=== PATIENT | female | born 1955 | race Asian ===

== ENCOUNTER 2023-09-29 00:03 | Day surgery (SDC) | payer OTHER, SELFPAY ==
[2023-09-28 11:49] VITALS: BMI 36.6
--- NOTE | 2023-09-28 11:49 | PC.NURSE ---
PRE-OP INSTRUCTIONS, PLEASE READ CAREFULLY Report to the Outpatient Waiting Room, entrance under the green pavilion located off [facility], at time _0630_ on date _09/29/23_. Planned Procedure Time: _0830_. Time changes happen often and if your time is changed the preop area will call you the afternoon before. - You and your visitor will be asked to self-screen and do not enter if you have any COVID symptoms. - A mask is optional within the hospital at this time. Patients may have clear liquids (water, carbonated beverages, clear teas, apple juice) until 3 hours prior to surgery (0530 AM) with a maximum of 20 ounces. - No food from midnight until time of surgery Take the following medications with a SIP of water the morning of surgery: N/A DO NOT STOP ANY OF YOUR OTHER PRESCRIPTION MEDICATIONS PRIOR TO SURGERY ?EXCEPT THE FOLLOWING Medications to discontinue per physician N/A Date to take last dose Please no make-up, nail swiss, hairspray, perfume, deodorant, or body powder the day of surgery. No jewelry (including any body piercings) or valuables the day of surgery, leave them at home. Please take a shower or bath the night before, or the morning of, surgery with an antibacterial soap. Wear comfortable, loose fitting clothing. - Jewelry must be removed prior to entering the operating room. Rings and piercings that are not removed may be cut off. - The hospital will not accept responsibility for valuables. - Please leave all valuables, including medications, at home the day of surgery. If you are going home after surgery, a licensed cdl team truck driver must drive you home. - NO public transportation without another adult if you receive anesthesia. - We recommend that an adult stay with you for 24 hours following discharge. - We also recommend that you do not drive, make important decision, drink alcoholic beverages, or take any drugs that were not prescribed by your health care provider for at least 24 hours after your discharge time. Follow any additional instructions given to you from your surgeon. If you or anyone in your household have experienced Covid symptoms in the past week, please notify your surgeon or the nurse liaison at the phone number below for possible testing. Instructions given to _PATIENT & [id number] (WILLIAM)_and asked if any additional questions and then verbalized understanding. Patient advised to call surgeon office or pre surgery nurse liaison [phone] if any additional questions.
[2023-09-29] MEDS: ACETAMINOPHEN 500 MG TABLET 1000 MG PO (07:03)
[2023-09-29] MEDS: LACTATED RINGERS 1,000 ML 30 ML IV CONT (07:08)
[2023-09-29 07:13] VITALS: BP 151/70; PULSE 63; RESP 18; TEMP 36.7; O2SAT 98
--- NOTE | 2023-09-29 07:54 | WPDANESEPP ---
Anes - Eval Pre Procedure Procedure: Operation Date: 09/29/23 08:30 Proposed Procedures p Hysteroscopy Dilation and Curettage - Laal Macario MD Date/Time: 09/29/23 07:54 Pre Op Diagnosis: post menopausal bleeding Patient Data Age: 67 Gender: F Height: 1.68 m Weight: 103 kg Last Vital Signs Temp 36.7 C 09/29/23 07:13 Pulse 63 09/29/23 07:13 Resp 18 09/29/23 07:13 BP 151/70 H 09/29/23 07:13 Pulse Ox 98 09/29/23 07:13 O2 Del Method Room Air 09/29/23 07:13 Allergies Allergy/AdvReac Type Severity Reaction Status Date / Time No Known Allergies Allergy Verified 09/29/23 07:40 Home Medications Medication Instructions Recorded Confirmed Type No Home Medications 09/28/23 09/29/23 History Patient hx anesthesia problems: none Family hx anesthesia problems: none Results Review: All pre-operative results and documents have been reviewed as part of the pre-operative evaluation. [facility] Past Medical History Medical History (Updated 09/29/23 @ 07:54 by Cristo Urban MD) Obesity Post-menopause bleeding Surgical History Surgical History (Updated 09/29/23 @ 07:54 by Cristo Urban MD) H/O arthroscopic knee surgery H/O laparoscopy Social History Social History Smoking status: Never smoker Second hand tobacco smoke exposure: No Alcohol intake: never Substance use: never Substance use type: does not use Living arrangements: with family Spiritual care concerns: Yes (PREFERS NO MALES INVOLVED IN PT CARE) Exam Day of Procedure 09/29/23 07:54 Patient weight: obese
--- NOTE | 2023-09-29 08:06 | WPDHPUPDATE1 ---
History and Physical Update Update Date/Time: 09/29/23 08:06 History and Physical has been reviewed, including an updated exam of the patient. There are NO changes in the patient's condition. Risks, benefits, and alternatives have been discussed and questions answered. Patient agrees to proceed with procedure.
--- NOTE | 2023-09-29 08:16 | P.PNAN_ITS ---
Anes - Initial Pre Proc Eval Procedure: Operation Date: 09/29/23 08:30 Proposed Procedures p Hysteroscopy Dilation and Curettage - Lala Macario MD Date/Time: 09/29/23 08:16 Surgeon: Lala Macario MD Pre Op Diagnosis: post menopausal bleeding Patient Data Age: 67 Gender: F Height: 1.68 m Weight: 103 kg Last Vital Signs Temp 36.7 C 09/29/23 07:13 Pulse 63 09/29/23 07:13 Resp 18 09/29/23 07:13 BP 151/70 H 09/29/23 07:13 Pulse Ox 98 09/29/23 07:13 O2 Del Method Room Air 09/29/23 07:13 Allergies Allergy/AdvReac Type Severity Reaction Status Date / Time No Known Allergies Allergy Verified 09/29/23 07:40 Home Medications Medication Instructions Recorded Confirmed Type No Home Medications 09/28/23 09/29/23 History Patient hx anesthesia problems: none Family hx anesthesia problems: none Results Review: All pre-operative results and documents have been reviewed as part of the pre- operative evaluation. [facility] Past Medical History Medical History Obesity Post-menopause bleeding Surgical History Surgical History H/O arthroscopic knee surgery H/O laparoscopy Social History Social History Smoking status: Never smoker Second hand tobacco smoke exposure: No Alcohol intake: never Substance use: never Substance use type: does not use Living arrangements: with family Spiritual care concerns: Yes (PREFERS NO MALES INVOLVED IN PT CARE) Anes - Eval Final PreProcedure Day of Procedure 09/29/23 08:16 Patient weight: obese Heart: regular rate and rhythm Lungs: clear to auscultation Airway: Mallampati scale class II Neurological: alert and oriented ASA classification: II Emergent: no Anesthetic plan: proceed Anesthesia type and monitoring: general GIVS Results Review: All pre-operative results and documents have been reviewed as part of the pre- operative evaluation. Informed Consent: The patient's anesthetic plan and its attendant risks and benefits were discusse d with the patient/family/POA. Questions were solicited and answers provided to the satisfaction of the patient/family/POA.
[2023-09-29] MEDS: LIDOCAINE HCL 1% LOCAL INJ 10 ML VIAL INFILTRATE (08:35)
[2023-09-29 09:10] VITALS: BP 135/67; PULSE 80; RESP 20; O2SAT 94
--- NOTE | 2023-09-29 09:10 | W.PM.PROC2 ---
Procedure Note - Detailed Date of Procedure 09/29/23 Pre-op Diagnosis post menopausal bleeding Post-op Diagnosis Same (Endometrial polyp) Procedure Performed Hysteroscopy D&C with polypectomy Surgeon Lala Macario MD Anesthesia MAC Indications abnormal uterine bleeding Findings large endometrial polyp that filled the cavity. 4 x 2 cm normal-appearing vulva, vagina, cervix Description of Procedure the patient was taken the operating room. She was prepped and draped in the dorsal lithotomy position after induction of mac anesthesia. A speculum was placed in the vagina. The cervix was grasped with a tenaculum. The cervix was dilated about 1 cm. The hysteroscope was inserted. The intrauterine cavity and endocervix were evaluated. the [employer] cutting rotational blade instrument was inserted. The polyp was resected. There was a polyp that filled the entire cavity. It was removed. Hysteroscope was withdrawn. A medium-size curette was used to curettage all the surfaces were within the endometrial cavity. the sample was collected on Telfa and sent to pathology. The hysteroscope was reinserted and the above findings were noted. Patient tolerated the procedure well. The speculum and tenaculum were removed. She was taken recovery room in stable condition. Sponge lap and needle counts were correct x2. Estimated Blood Loss 40 Drains No Packing No Pathology Yes Complications No immediate complications Condition Stable Disposition PACU
[2023-09-29] MEDS: oxyCODONE HCL (*CRX) 5 MG TAB IR PO (09:39)
[2023-09-29 09:40] VITALS: BP 151/53; PULSE 62
[2023-09-29 10:10] VITALS: BP 142/71; PULSE 54
== END 2023-09-29 10:40 | disposition home or self-care (01) ==
PROVIDERS: PCP Internal Medicine; Visit Provider Obstetrics & Gynecology
PROC: 0U5B8ZZ Destruction of Endometrium, Via Natural or Artificial Opening Endoscopic (ICD-10-PCS; CPT 58563; principal; 2023-09-29 08:30)
DX: N95.0 Postmenopausal bleeding (principal); N84.0 Polyp of corpus uteri; I10 Essential (primary) hypertension; E66.9 Obesity, unspecified; Z68.36 Body mass index [BMI] 36.0-36.9, adult; Z98.890 Other specified postprocedural states
CPT/HCPCS: 58558; 88305; A9270; J3010; J7120